=== PATIENT | male | born 1995 | race Caucasian/White ===

== ENCOUNTER → 2021-04-24 16:11 | Outpatient (CLI) | payer BC, SELFPAY ==
[2021-04-24 16:49] LABS: Absolute Lymphocyte Count 1.84 X10^3/uL (0.83-4.51); Absolute Neutrophil Count 4.3 X10^3/uL (2.0-7.7); Basophil# 0.03 X10^3/uL; Basophil% 0.4 % (0-1); Eosinophils% 2.8 % (0-5); Hematocrit 48.9 % (40-54); Hemoglobin 16.6 g/dL (13.0-16.5); Lymphocyte # 1.84 X10^3/ul (0.83-4.51); Lymphocyte % 25.7 % (19-41); Mean Corp Hgb Conc 33.9 g/dL (32-36); Mean Corpuscular Hgb 28.1 pg (27.0-32.0); Mean Corpuscular Volume 82.7 fL (80-94); Mean Platelet Vol. 9.7 fl (6.2-12.0); Monocyte# 0.75 X10^3/uL; Monocyte% 10.5 % (0-10); NRBC Flagged by Analyzer 0 % (0-5); Neutrophil # 4.32 X10^3/uL (2.7-7.7); Neutrophil % 60.3 % (47-70); Platelet Count 288 K/mm3 (150-450); RBC Distribution Width CV 12.1 % (11.6-14.6); RBC Distribution Width SD 36.4 fl (35.1-43.9); Red Blood Count 5.91 M/mm3 (4.6-6.2); White Blood Count 7.2 K/mm3 (4.4-11.0)
[2021-04-24 17:13] LABS: Erythrocyte Sedimentation Rate 11 mm/hr (0-20)
[2021-04-24 17:36] LABS: ALB/GLOB Ratio 1.1 RATIO (0.9-2.4); AST(SGOT) 26 U/L (15-37); Alanine Aminotransfer ALT/SGPT 42 U/L (16-61); Albumin, Serum 3.9 g/dL (3.2-5.0); Alkaline Phosphatase 90 U/L (45-117); Anion Gap 5 (5-15); BUN 10 mg/dL (7-18); BUN/Creat Ratio 10.4 RATIO (10-20); CRP < 2.90 mg/L (0.0-3.0); Chloride 110 mmol/L (98-107); Creatinine, Serum 0.96 mg/dL (0.70-1.30); EST Glomerular Filtration Rate 99 mL/min (>60); Est Glom Filt Rate - Afr Amer 120 mL/min (>60); Globulin 3.7 g/dL (2.2-4.2); Glucose 91 mg/dL (74-106); LDH 254 U/L (87-241); Protein, Total 7.6 g/dL (6.4-8.2); Sodium Level 142 mmol/L (136-145)
[2021-04-26 10:07] LABS: HEPATITIS B SURFACE AG Negative (Negative); Hepatitis A IgM Antibody Negative (Negative); Hepatitis B Core AB IgM Negative (Negative)
[2021-04-26 14:37] LABS: Hep C Antibodies <0.1 s/co ratio (0.0-0.9); Immunoglobulin A 402 mg/dL (90-386)
[2021-04-27 01:06] LABS: Anti-Centromere B Ab <0.2 AI (0.0-0.9); Anti-Chromatin <0.2 AI (0.0-0.9); Anti-Jo <0.2 AI (0.0-0.9); Anti-Scleroderma-70 AB <0.2 AI (0.0-0.9); RNP Ab <0.2 AI (0.0-0.9); SJOGREN'S Anti-SS-A test < 0.2 AI (0.0-0.9); SJOGREN'S Anti-SS-B test < 0.2 AI (0.0-0.9); Smith Ab <0.2 AI (0.0-0.9)
[2021-04-27 10:40] LABS: Anti-dsDNA Ab <1 IU/mL (0-9)
== END ==
PROVIDERS: Referring Provider Internal Medicine Gastroenterology; Visit Provider Internal Medicine Gastroenterology
DX: K76.0 Fatty (change of) liver, not elsewhere classified (principal); R10.9 Unspecified abdominal pain
CPT/HCPCS: 80053; 80074; 82784; 83615; 85025; 85652; 86140; 86225; 86235

== ENCOUNTER → 2021-05-11 07:58 | Outpatient (CLI) | payer BC, SELFPAY ==
--- NOTE | 2021-05-11 08:03 | US_ITS ---
STUDY: ABDOMINAL ULTRASOUND - RIGHT UPPER QUADRANT REASON FOR VISIT: Male, 26 years old FATTY LIVER TECHNIQUE: Ultrasound evaluation of the right upper quadrant was performed with real-time and static vasquez-scale imaging. TECHNICAL QUALITY: Adequate. COMPARISON: None. FINDINGS: Liver: The liver measures 15.6 cm. There is increased echogenicity consistent with fatty infiltration. The bile ducts are within normal limits. There is hepatic color flow. The direction of portal flow is hepatopetal. There is no demonstrated mass lesion. Gallbladder: Normal distended gallbladder. The gallbladder wall measures 1.6 mm. There is a negative sonographic Ramon''s sign. There is no pericholecystic fluid. There are no gallstones. Common Bile Duct (C.B.D.): The common bile duct measures 6.3 mm. Pancreas: Normal size of the head, body and tail of the pancreas. There is normal echogenicity of the pancreas. There is no demonstrated pancreatic mass or cyst. Right Kidney: Normal size of the right kidney. The right kidney measures 11.6 cm x 5.4 cm x 5.2 cm. Normal renal cortex. The right cortex measures 1.7 cm. There is no demonstrated renal mass or cyst. There is no right hydronephrosis. IMPRESSION: Fatty infiltration of the liver. Electronically Signed: Lloyd Marcano MD at 8:50 EST , Service support , STUDY: ABDOMINAL ULTRASOUND - ELASTOGRAPHY REASON FOR VISIT: Male, 26 years old. Fatty infiltration of the liver. TECHNIQUE: Liver stiffness measurements were obtained on a [employer] 85 ultrasound machine using a CA 1-7 probe following the SRU guidelines. 3 measurements were obtained using a 2-D-SWE method. The IQR/M was 22% suggesting a quality data set. TECHNICAL QUALITY: Adequate. COMPARISON: Comparison is made with prior ultrasound right upper quadrant done earlier today. FINDINGS: Liver: There is fatty infiltration of the liver. Median liver stiffness measured 7.1 kPa. US/Abdomen Limited IMPRESSION: Liver stiffness measures 7.1 kPa compatible with F2 Metavir score. Electronically Signed: Lloyd Marcano MD at 8:51 EST , Service support ,
--- NOTE | 2021-05-11 08:41 | ECHOD_ITS ---
Reason For Study: Chest Pain Procedure This was a 2D Doppler, Color Flow transthoracic echocardiogram. Exam performed in department. Left Ventricle Normal LV size. Left ventricular systolic function is normal. The estimated ejection fraction is 60 %. Normal diastology for age. No regional wall motion abnormalities noted. Right Ventricle Normal RV size. Normal systolic function. Atria Normal left atrium. Normal right atrium. Mitral Valve Normal mitral valve. Tricuspid Valve Normal tricuspid valve. Aortic Valve Normal aortic valve. Trisinus/trileaflet aortic valve. Pulmonic Valve Normal pulmonic valve. Great Vessels Normal aortic root. The pulmonary artery is normal size. Normal inferior vena cava. Pericardium/Pleural No pericardial effusion. MMode/2D Measurements & Calculations LVIDd: 5.5 cm IVSd: 1.3 cm LA dimension: 4.0 cm LVIDs: 3.1 cm LVPWd: 0.90 cm RVDd: 3.7 cm FS: 43.0 % LAV(MOD-bp): 61.6 ml LA A4 area: 19.0 cm2 RA A4 area: 13.9 cm2 LAV(MOD-bp) Indexed: 26.9 ml/m2 LAV(MOD-sp2): 70.1 ml LAV(MOD-sp4): 50.7 ml Time Measurements MV dec time: 0.32 sec Doppler Measurements & Calculations MV E max darien: 65.2 cm/sec Lat Peak E' Darien: 14.1 cm/sec Med Peak E' Darien: 9.2 cm/sec MV A max darien: 44.8 cm/sec E/E' lat: 4.6 E/E' med: 7.1 MV E/A: 1.5 MV V2 max: 70.2 cm/sec MV P1/2t max darien: 69.6 cm/sec Ao V2 max: 126.0 cm/sec MV max P.0 mmHg MV P1/2t: 129.8 msec Ao max P.3 mmHg MV V2 mean: 34.1 cm/sec MV dec slope: 157.0 cm/sec2 MV mean P.58 mmHg MVA(P1/2t): 1.7 cm2 MV V2 VTI: 27.9 cm LV V1 max: 101.4 cm/sec PA V2 max: 105.7 cm/sec LV V1 max P.1 mmHg ECHO/Echo Complete Interpretation Summary Normal LV size. Left ventricular systolic function is normal. The estimated ejection fraction is 60 %. Normal diastology for age. Structurally normal valves. Ordering Physician: Eliel Jefferson Referring Physician: Eliel Jefferson Performed By: Jonathan Joseph RCS
== END ==
LOC: US 07:59
PROVIDERS: Referring Provider Internal Medicine Gastroenterology; Visit Provider Internal Medicine Gastroenterology
DX: R10.9 Unspecified abdominal pain (principal); R07.9 Chest pain, unspecified; K76.0 Fatty (change of) liver, not elsewhere classified
CPT/HCPCS: 76705; 76981; 93306

== ENCOUNTER 2021-05-26 13:15 | Day surgery (SDC) | payer BC, SELFPAY ==
--- NOTE | 2021-05-26 | IMM_PTH ---
PATIENT: BELIA CONNOR LOC: EN U#:[id number] AGE/SX: 26/M ROOM: RE05/26/[address]: Dr. Eliel Jefferson DO : 1995 BED: DIS: 05/26/2021 SPEC #: [id number] RECD: 05/27/21 12:29 STATUS: NIRAV CRISTINO #: [id number] DANNA: 05/26/21 00:[address]: Eliel Jefferson DEPT: IMMUNOHISTOCHEMISTRY RECD BY: Kendy Rondon ENTERED: 05/27/21 12:30 SP TYPE: IMMUNO OTHR DR: Dr. David Varghese MD Tissues: B - Stomach, NOS Procedures: H Pylori (initial) PHYSICIAN & INSTITUTION [place] [id number] SPECIMEN INFORMATION: Tissue Source: B ? Gastric body biopsy Clinical Info: Abdominal pain, fatty liver, chest pain, diarrhea Specimen Number: [id number] CPT code: 29204 METHODOLOGY: Deparaffinized sections of prefer/formalin-fixed tissue or PAP/DQ stained slides are incubated with monoclonal/polyclonal antibodies/oligonucleotide probes. Localization is made via biotin free immunoperoxidase method. Appropriate controls are performed and reacted as expected. Results on target cell population are indicated in the following table: RESULTS: ANTIBODY / CLONE RESULT Block B H Pylori (polyclonal) positive These tests were developed and their performance characteristics determined by [facility]. They may not have been cleared or approved by the U.S. Food and Drug Administration. The FDA has determined that such clearance or approval is not necessary. INTERPRETATION: B. Gastric body, biopsy: Positive for numerous H. pylori organisms. SJ:aileen 05/28/2021
[2021-05-26 13:48] VITALS: BP 130/80; PULSE 58; RESP 16; TEMP 36.4; O2SAT 98; BMI 37.0
[2021-05-26] MEDS: Lactated Ringers 1,000 ML 15 ML IV (14:01)
--- NOTE | 2021-05-26 14:30 | COLBX_PTH ---
PATIENT: BELIA CONNOR LOC: EN U#:[id number] AGE/SX: 26/M ROOM: RE05/26/[address]: Dr. Eliel Jefferson DO : 1995 BED: DIS: 05/26/2021 SPEC #: [id number] RECD: 05/26/21 16:58 STATUS: NIRAV CRISTINO #: [id number] DANNA: 05/26/21 14:[address]: Eliel Jefferson DEPT: SURGICAL PATHOLOGY RECD BY: Minal Mcpherson ENTERED: 05/27/21 09:19 SP TYPE: COLON BX OTHR DR: Dr. David Varghese MD Tissues: A - Duodenum, NOS B - Gastric mucous membrane C - Esophagus, NOS D - SPLENIC FLEXURE E - Ileum, NOS F - COLON BIOPSY G - Transverse colon Procedures: Special Stain Group II Surgery Specimen Level IV Alcian Blue/PAS (control) HEADER OPERATION: Colonoscopy, EGD ([facility] [place] PRE-OP DIAGNOSIS: Abdominal pain, fatty liver, chest pain, diarrhea TISSUE SUBMITTED: A ? Duodenum biopsy, B ? Gastric body biopsy, C ? Distal esophagus biopsy, D ? Biopsy of splenic flexure polyp, E ? Terminal ileum biopsy, F ? Random colon biopsies G ? Transverse colon polyp biopsy MICROSCOPIC DIAGNOSIS A. Duodenum, biopsy: Fragments of duodenal mucosa, no pathologic diagnosis. B. Gastric body, biopsy: Moderate chronic active gastritis. See comment. C. Distal esophagus, biopsy: Fragments of gastric mucosa with moderate chronic inflammation and minimal acute inflammation. Intestinal metaplasia (goblet cell metaplasia) not identified. See comment. D. Splenic flexure polyp, biopsy: Tubular adenoma. E. Terminal ileum, biopsy: Fragments of small intestinal mucosa, no pathologic diagnosis. See comment. F. Colon, random biopsy: Fragments of colonic mucosa, no pathologic diagnosis. G. Transverse colon polyp, biopsy: Fragments of tubular adenoma. SJ:aileen 05/28/2021 COMMENT B. The results of immunohistochemistry for Helicobacter pylori will be reported separately ([id number]). C. Alcian blue/PAS stain with matched control is used in the evaluation of the specimen. E. Prominent lymphoid aggregates are noted, favor benign. MICROSCOPIC DESCRIPTION Slides are reviewed. GROSS DESCRIPTION A - Received in fixative is one container labeled with the patient's name and designated duodenum biopsy. The specimen consists of multiple irregular fragments of light berg soft tissue that in aggregate measure 1 x 0.2 x 0.1 cm. The specimen is totally submitted in one cassette. B - Received in fixative is one container labeled with the patient's name and designated gastric body biopsy. The specimen consists of multiple irregular fragments of light berg soft tissue that in aggregate measure 1.5 x 0.4 x 0.1 cm. The specimen is totally submitted in one cassette. C - Received in fixative is one container labeled with the patient's name and designated distal esophagus biopsy. The specimen consists of two irregular fragments of light berg soft tissue that in aggregate measure 0.8 x 0.4 x 0.1 cm. The specimen is totally submitted in one cassette. D - Received in fixative is one container labeled with the patient's name and designated biopsy of splenic flexure polyp. The specimen consists of two irregular fragments of light berg soft tissue that in aggregate measure 0.3 x 0.2 x 0.1 cm. The specimen is totally submitted in one cassette. E - Received in fixative is one container labeled with the patient's name and designated terminal ileum biopsy. The specimen consists of multiple irregular fragments of light berg soft tissue that in aggregate measure 0.7 x 0.5 x 0.1 cm. The specimen is totally submitted in one cassette. F - Received in fixative is one container labeled with the patient's name and designated random colon biopsy. The specimen consists of multiple irregular fragments of light berg soft tissue that in aggregate measure 2 x 0.5 x 0.1 cm. The specimen is totally submitted in one cassette. G - Received in fixative is one container labeled with the patient's name and designated transverse colon polyp biopsy. The specimen consists of multiple irregular fragments of light berg soft tissue that in aggregate measure 0.8 x 0.4 x 0.1 cm. The specimen is totally submitted in one cassette. / SJ:rg 05/27/2021 TC:1 CPT: 00004 x7, 16176
--- NOTE | 2021-05-26 14:49 | HP.PCM_ITS ---
History and Physical Date of Admission: 05/26/21 26 M who presents to the office today for evaluation of abdominal pain. He has been also been having a lot of nausea and has had episodes of vomiting undigested food. He has been having pains for about a year with pressure between shoulder blades and irritation under L rib and upper chest pain occurring more recently. Stool have been more berg colored and vary between very loose and hard. Increased urination. Denies nausea but has been throwing up when he eats certain foods. Denies weight loss. PCP seen and given omeprazole and feels it is helping, she also did US and he reports fatty liver. Fatty liver and gallbladder issues are common in his family. [place] ED visited and told he was constipated. Denies colonoscopy or EGD history. ROS ENT ENT: Positive for nosebleed/epistaxis Gastro GI: Positive for abdominal pain, bloating, change in bowel habits, diarrhea, heartburn and vomiting Genitourinary Male: Positive for urinary frequency Musc Musculoskeletal: Positive for back pain Exam Const General: cooperative and comfortable Nutritional Appearance: average body habitus and well nourished HENMA Head: normal to inspection Ears: hearing grossly normal bilaterally Nose: external nose normal Face and sinus: normal facial exam Mouth: oral mucosae normal Throat: posterior oropharynx normal Eyes General: appearance normal, both eyes and all related structures Neck Neck: normal visual inspection Chest Chest palpation & inspection: normal inspection of the chest and normal palpation of entire chest wall Resp Effort & Inspection: normal respiratory effort Auscultation: Bilateral: Clear to Auscultation Cardio Palpation: normal PMI Rate: regular rate Rhythm: regular rhythm GI Inspection: normal to inspection Auscultation: normal bowel sounds Percussion: normal to percussion Palpation: no hepatosplenomegaly Skin General: no rashes or lesions noted Neuro General: patient alert Extrem General: normal to inspection Psych Affect: normal affect Assessment and Plan Assessment and Plan (1) Abdominal pain: Status: Acute Orders: Orders: Colonoscopy 04/24/21 EGD 04/24/21 Comprehensive Metabolic Profil 04/24/21 CBC W/Diff, Automated 04/24/21 Elastography Parenchyma/Organ 04/24/21 CRP 04/24/21 LDH 04/24/21 Erythrocyte Sed Rate 04/24/21 Hepatitis Panel Acute 04/24/21 Immunoglobulin A 04/24/21 Plan - Dr. Julian Friend, DO: Diagnosis for his abdominal pain could include 3 celiac disease, peptic ulcer disease, irritable bowel syndrome, atypical GERD, atypical cholecystitis or biliary colic. We will evaluate his upper lower GI tract. (2) Fatty liver: Status: Acute Orders: Orders: Colonoscopy 04/24/21 EGD 04/24/21 Comprehensive Metabolic Profil 04/24/21 CBC W/Diff, Automated 04/24/21 Elastography Parenchyma/Organ 04/24/21 CRP 04/24/21 LDH 04/24/21 Erythrocyte Sed Rate 04/24/21 Hepatitis Panel Acute 04/24/21 Immunoglobulin A 04/24/21 Plan - Dr. Eliel Jefferson, DO: He will need an elastography. He may need a HIDA scan and if the HIDA is not properly draining from the liver that could be a sign of liver disease. (3) Chest pain: Status: Acute Orders: Orders: Chest 1 View 04/24/21 Echo Complete 7 Days Plan - Dr. Julian Friend, DO: Chest pain thought to be secondary to costochondritis. I will give him a short course of ibuprofen therapy to be taken with PPI therapy. (4) Diarrhea: Status: Acute Plan - Dr. Julian Friend, DO: We will evaluate the lower GI tract for inflammatory bowel disease, microscopic colitis, lymphocytic colitis or IBS with diarrhea. Plan Details Other Medications: New: bisacodyl as directed for bowel prep 5 mg PO ONCE 4 tabs 0RF polyethylene glycol 3350 (Miralax) as directed for bowel prep 17 grams PO DAILY 238 grams 0RF Is I have re-examined the patient. There are no clinical changes since date of exam.
[2021-05-26 15:35] VITALS: BP 100/60; BP 130/80; PULSE 64; RESP 16; TEMP 36.2; O2SAT 98
[2021-05-26 15:40] VITALS: BP 130/80; BP 98/79; PULSE 58; RESP 16; O2SAT 96
--- NOTE | 2021-05-26 15:40 | OP.COLON_ITS ---
Patient Name: Romeo Mendoza Procedure Date: 05/26/2021 3:13 PM Date of : 1995 Age: 26 Procedure: Colonoscopy Indications: Chronic diarrhea Providers: Eliel Jefferson DO Medicines: See the Anesthesia note for documentation of the administered medications Patient Profile: This is a 26 year old male. Last Colonoscopy: none. The patient's first colonoscopy is today. Complications: No immediate complications. Procedure: Pre-Anesthesia Assessment: - Prior to the procedure, a History and Physical was performed, and patient medications and allergies were reviewed. The patient is competent. The risks and benefits of the procedure and the sedation options and risks were discussed with the patient. All questions were answered and informed consent was obtained. Patient identification and proposed procedure were verified by the physician in the pre-procedure area. Mental Status Examination: alert and oriented. Airway Examination: normal oropharyngeal airway and neck mobility. Respiratory Examination: clear to auscultation. CV Examination: normal. Prophylactic Antibiotics: The patient does not require prophylactic antibiotics. Prior Anticoagulants: The patient has taken no previous anticoagulant or antiplatelet agents. ASA Grade Assessment: II - A patient with mild systemic disease. After reviewing the risks and benefits, the patient was deemed in satisfactory condition to undergo the procedure. The anesthesia plan was to use moderate sedation / analgesia (conscious sedation). Immediately prior to administration of medications, the patient was re-assessed for adequacy to receive sedatives. The heart rate, respiratory rate, oxygen saturations, blood pressure, adequacy of pulmonary ventilation, and response to care were monitored throughout the procedure. The physical status of the patient was re-assessed after the procedure. After I obtained informed consent, the scope was passed under direct vision. Throughout the procedure, the patient's blood pressure, pulse, and oxygen saturations were monitored continuously. The Colonoscope was introduced through the anus and advanced to the terminal ileum, with identification of the appendiceal orifice and IC valve. The colonoscopy was performed without difficulty. The patient tolerated the procedure well. The quality of the bowel preparation was good. Moderate Sedation: Moderate (conscious) sedation was administered by the endoscopy nurse and supervised by the endoscopist. The patient's oxygen saturation, heart rate, blood pressure and response to care were monitored. Total physician intraservice time was 15 minutes. Moderate (conscious) sedation was administered by the endoscopy nurse and supervised by the endoscopist. The patient's oxygen saturation, heart rate, blood pressure and response to care were monitored. Total physician intraservice time was 15 minutes. Scope In: 3:16:01 PM Scope Withdrawal Time 0 hours 10 minutes 4 seconds Scope Out: 3:31:13 PM Total Procedure Duration Time 0 hours 15 minutes 12 seconds Findings: The perianal and digital rectal examinations were normal. Two sessile polyps were found in the transverse colon and hepatic flexure. The polyps were 1 to 2 mm in size. These polyps were removed with a hot snare. Resection and retrieval were complete. Verification of patient identification for the specimen was done. Estimated blood loss was minimal. An area of mildly congested mucosa was found in the descending colon, at the splenic flexure and at the hepatic flexure. Biopsies were taken with a cold forceps for histology. Estimated blood loss was minimal. The terminal ileum appeared normal. Biopsies were taken with a cold forceps for histology. Verification of patient identification for the specimen was done. Estimated blood loss was minimal. Impression: - Two 1 to 2 mm polyps in the transverse colon and at the hepatic flexure, removed with a hot snare. Resected and retrieved. - Congested mucosa in the descending colon, at the splenic flexure and at the hepatic flexure. Biopsied. - The examined portion of the ileum was normal. Biopsied. Recommendation: - Discharge patient to home. - Resume previous diet. - Continue present medications. - Await pathology results. - Repeat colonoscopy in 5 years for surveillance based on pathology results. - Return to GI office in 2 weeks. Procedure Code(s): --- Professional --- 72593, Colonoscopy, flexible; with removal of tumor(s), polyp(s), or other lesion(s) by snare technique 40992, 59, Colonoscopy, flexible; with biopsy, single or multiple 62736, 59, Moderate sedation services provided by the same physician or other qualified health rn managed care performing the diagnostic or therapeutic service that the sedation supports, requiring the presence of an independent trained observer to assist in the monitoring of the patient's level of consciousness and physiological status; initial 15 minutes of intraservice time, patient age 5 years or older 29731, 59, Moderate sedation services provided by the same physician or other qualified health rn managed care performing the diagnostic or therapeutic service that the sedation supports, requiring the presence of an independent trained observer to assist in the monitoring of the patient's level of consciousness and physiological status; initial 15 minutes of intraservice time, patient age 5 years or older CPT copyright 2017 [employer]. All rights reserved. The codes documented in this report are preliminary and upon label coder review may be revised to meet current compliance requirements. Eliel Jefferson DO 05/26/2021 3:40:08 PM This report has been signed electronically. Number of Addenda: 1 Note Initiated On: 05/26/2021 3:13 PM Addendum Number: 1 Addendum Date: 01/21/2022 6:13:17 AM MAC was used instead of moderate sedation for the patient. Eliel Jefferson DO 01/21/2022 6:13:21 AM This report has been signed electronically.
[2021-05-26 15:45] VITALS: BP 106/69; BP 130/80; PULSE 65; RESP 16; O2SAT 94
[2021-05-26 15:50] VITALS: BP 102/68; BP 130/80; PULSE 51; RESP 16; TEMP 35.7; O2SAT 99
--- NOTE | 2021-05-26 16:00 | OP.EGD_ITS ---
Patient Name: Romeo Mendoza Procedure Date: 05/26/2021 2:51 PM Date of : 1995 Age: 26 Procedure: Upper GI endoscopy Indications: Epigastric abdominal pain Providers: Eliel Jefferson DO Medicines: See the Anesthesia note for documentation of the administered medications Patient Profile: This is a 26 year old male. Refer to note in patient chart for documentation of history and physical. Patient has symptoms. Complications: No immediate complications. Procedure: Pre-Anesthesia Assessment: - Prior to the procedure, a History and Physical was performed, and patient medications and allergies were reviewed. The patient is competent. The risks and benefits of the procedure and the sedation options and risks were discussed with the patient. All questions were answered and informed consent was obtained. Patient identification and proposed procedure were verified by the physician in the pre-procedure area. Mental Status Examination: alert and oriented. Airway Examination: normal oropharyngeal airway and neck mobility. Respiratory Examination: clear to auscultation. CV Examination: normal. Prophylactic Antibiotics: The patient does not require prophylactic antibiotics. Prior Anticoagulants: The patient has taken no previous anticoagulant or antiplatelet agents. After reviewing the risks and benefits, the patient was deemed in satisfactory condition to undergo the procedure. The anesthesia plan was to use moderate sedation / analgesia (conscious sedation). Immediately prior to administration of medications, the patient was re-assessed for adequacy to receive sedatives. The heart rate, respiratory rate, oxygen saturations, blood pressure, adequacy of pulmonary ventilation, and response to care were monitored throughout the procedure. The physical status of the patient was re-assessed after the procedure. After obtaining informed consent, the endoscope was passed under direct vision. Throughout the procedure, the patient's blood pressure, pulse, and oxygen saturations were monitored continuously. The Endoscope was introduced through the mouth, and advanced to the second part of duodenum. The upper GI endoscopy was accomplished without difficulty. The patient tolerated the procedure well. Moderate Sedation: Moderate (conscious) sedation was administered by the endoscopy nurse and supervised by the endoscopist. The patient's oxygen saturation, heart rate, blood pressure and response to care were monitored. Total physician intraservice time was 15 minutes. Scope In: 3:03:17 PM Scope Out: 3:11:58 PM Total Procedure Duration Time 0 hours 8 minutes 41 seconds Findings: LA Grade A (one or more mucosal breaks less than 5 mm, not extending between tops of 2 mucosal folds) esophagitis with no bleeding was found 34 to 35 cm from the incisors. Biopsies were taken with a cold forceps for histology. Verification of patient identification for the specimen was done. Estimated blood loss was minimal. Biopsies were taken with a cold forceps for histology. Diffuse severe inflammation characterized by congestion (edema), erosions and erythema was found in the entire examined stomach. Biopsies were taken with a cold forceps for Helicobacter pylori testing. Verification of patient identification for the specimen was done. Estimated blood loss was minimal. Diffuse moderately erythematous mucosa without bleeding was found in the stomach. Biopsies were taken with a cold forceps for histology. Verification of patient identification for the specimen was done. Estimated blood loss was minimal. Patchy mildly erythematous mucosa without active bleeding and with no stigmata of bleeding was found in the duodenal bulb. Biopsies were taken with a cold forceps for histology. Estimated blood loss: none. Impression: - LA Grade A reflux esophagitis. Biopsied. - Gastritis. Biopsied. - Erythematous mucosa in the stomach. Biopsied. - Erythematous duodenopathy. Biopsied. Recommendation: - Discharge patient to home. - Resume previous diet. - Await pathology results. - Return to my office in 2 weeks. - Continue present medications. Procedure Code(s): --- Professional --- 06438, Esophagogastroduodenoscopy, flexible, transoral; with biopsy, single or multiple 96911, 59, Moderate sedation services provided by the same physician or other qualified health skin care consultant performing the diagnostic or therapeutic service that the sedation supports, requiring the presence of an independent trained observer to assist in the monitoring of the patient's level of consciousness and physiological status; initial 15 minutes of intraservice time, patient age 5 years or older CPT copyright 2017 [employer]. All rights reserved. The codes documented in this report are preliminary and upon ore crushing dust collector review may be revised to meet current compliance requirements. Eliel Jefferson DO 05/26/2021 3:59:29 PM This report has been signed electronically. Number of Addenda: 1 Note Initiated On: 05/26/2021 2:51 PM Addendum Number: 1 Addendum Date: 01/21/2022 6:13:04 AM MAC was used instead of moderate sedation for the patient. Eliel Jefferson DO 01/21/2022 6:13:09 AM This report has been signed electronically.
[2021-05-26 16:05] VITALS: BP 130/80
== END 2021-05-26 23:59 | disposition home or self-care (01) ==
LOC: EN 13:19 → AC 13:22
PROVIDERS: PCP Family Medicine; Referring Provider Internal Medicine Gastroenterology; Visit Provider Internal Medicine Gastroenterology
PROC: 0DJD8ZZ Inspection of Lower Intestinal Tract, Via Natural or Artificial Opening Endoscopic (ICD-10-PCS; CPT 45378; principal; 2021-05-26 14:25)
DX: K21.00 Gastro-esophageal reflux disease with esophagitis, without bleeding (principal); K29.00 Acute gastritis without bleeding; D12.3 Benign neoplasm of transverse colon; K76.0 Fatty (change of) liver, not elsewhere classified; Z79.899 Other long term (current) drug therapy; Z86.16 Personal history of COVID-19
CPT/HCPCS: 45385; 45380; 43239; 88305; 88313; 88342; J7120; J2405

== ENCOUNTER → 2024-01-24 | Outpatient (CLI) | payer OTHER, SELFPAY ==
[2024-01-24 10:03] LABS: Absolute Lymphocyte Count 1.98 X10^3/uL (0.83-4.51); Absolute Neutrophil Count 3.3 X10^3/uL (2.0-7.7); Basophil# 0.04 X10^3/uL; Basophil% 0.7 % (0-1); Eosinophil# 0.17 X10^3/uL; Eosinophils% 2.8 % (0-5); Hematocrit 46.5 % (40-54); Hemoglobin 15.3 g/dL (13.0-16.5); Lymphocyte # 1.98 X10^3/ul (0.83-4.51); Lymphocyte % 32.3 % (19-41); Mean Corp Hgb Conc 32.9 g/dL (32-36); Mean Corpuscular Hgb 27.4 pg (27.0-32.0); Mean Corpuscular Volume 83.2 fL (80-94); Mean Platelet Vol. 9.4 fl (6.2-12.0); Monocyte# 0.59 X10^3/uL; Monocyte% 9.6 % (0-10); NRBC Flagged by Analyzer 0 % (0-5); Neutrophil # 3.33 X10^3/uL (2.7-7.7); Neutrophil % 54.3 % (47-70); Platelet Count 241 K/mm3 (150-450); RBC Distribution Width CV 13.1 % (11.6-14.6); RBC Distribution Width SD 38.9 fl (35.1-43.9); Red Blood Count 5.59 M/mm3 (4.6-6.2); White Blood Count 6.1 K/mm3 (4.4-11.0)
[2024-01-24 10:42] LABS: AST(SGOT) 23 U/L (15-37); Alanine Aminotransfer ALT/SGPT 43 U/L (16-61); Albumin, Serum 3.6 g/dL (3.2-5.0); Alkaline Phosphatase 98 U/L (45-117); Amylase 34 U/L (25-115); Anion Gap 3 (5-15); BUN 9 mg/dL (7-18); BUN/Creat Ratio 9.4 RATIO (10-20); Bilirubin, Direct 0.14 mg/dL (0.00-0.30); Calcium,Total 9.1 mg/dL (8.5-10.1); Chloride 108 mmol/L (98-107); Cholesterol 192 mg/dL (200); Creatinine, Serum 0.96 mg/dL (0.70-1.30); EST Glomerular Filtration Rate 98 mL/min (>60); Est Glom Filt Rate - Afr Amer 118 mL/min (>60); Globulin 3.5 g/dL (2.2-4.2); Glucose 98 mg/dL (74-106); High Density Lipoprotein 49 mg/dL; LDH 203 U/L (87-241); Lipase 30 U/L (13-75); Protein, Total 7.1 g/dL (6.4-8.2); Sodium Level 141 mmol/L (136-145); Triglycerides 118 mg/dL; Very Low Density Lipoprotein 24 mg/dL (5-40)
== END | disposition home or self-care (01) ==
LOC: LAB 09:40
PROVIDERS: PCP Family Medicine; Referring Provider Internal Medicine Gastroenterology; Visit Provider Internal Medicine Gastroenterology
DX: K76.0 Fatty (change of) liver, not elsewhere classified (principal); R10.9 Unspecified abdominal pain; K63.8219 Small intestinal bacterial overgrowth, unspecified
CPT/HCPCS: 36415; 80053; 80061; 82150; 82248; 83615; 83690; 85025

== ENCOUNTER → 2024-02-07 | Outpatient (CLI) | payer OTHER, SELFPAY ==
--- NOTE | 2024-02-07 08:18 | US_ITS ---
STUDY: ABDOMINAL ULTRASOUND - RIGHT UPPER QUADRANT; ELASTOGRAPHY REASON FOR VISIT: Male, 28 years old. Epigastric pain. Fatty liver. TECHNIQUE: Ultrasound evaluation of the right upper quadrant was performed with real-time and static vasquez-scale imaging. Point quantification shear wave elastography was performed ([facility]). TECHNICAL QUALITY: Adequate. COMPARISON: Comparison is made with prior study May 11, 2021. FINDINGS: Liver: The liver measures 16.2 cm. There is increased echogenicity consistent with fatty infiltration. The bile ducts are within normal limits. There is hepatic color flow. The direction of portal flow is hepatopetal. There is no demonstrated mass lesion. Median liver stiffness measured 9.9 kPa. Gallbladder: Normal distended gallbladder. The gallbladder wall measures 3 mm. There is a negative sonographic Ramon''s sign. There is no pericholecystic fluid. There are no gallstones. Common Bile Duct (C.B.D.): The common bile duct measures 4.2 mm. Pancreas: There is normal echogenicity of the visualized pancreas. There is no demonstrated pancreatic mass or cyst. Right Kidney: Normal size of the right kidney. The right kidney measures 11.8 cm x 5.4 cm x 5.8 cm. Normal renal cortex. The right cortex measures 1.5 cm. There is no demonstrated renal mass or cyst. There is no right hydronephrosis. US/ABD Limited w/ Elastography IMPRESSION: 1. Liver stiffness measures 9.9 kPa compatible with F2-F3 (Mild to moderate liver fibrosis) Metavir score. Electronically Signed: Lloyd Marcano MD at 11:09 EDT ,
== END | disposition home or self-care (01) ==
PROVIDERS: PCP Family Medicine
DX: K76.0 Fatty (change of) liver, not elsewhere classified (principal); R10.9 Unspecified abdominal pain; K63.8219 Small intestinal bacterial overgrowth, unspecified
CPT/HCPCS: 76705; 76981